=== PATIENT | female | born 1960 | race American Indian/Alaskan Native ===

== ENCOUNTER 2021-07-20 13:50 | Outpatient (CLI) | payer OTHER ==
--- NOTE | 2021-07-22 16:52 | Mammography Report ---
BILATERAL DIGITAL DIAGNOSTIC MAMMOGRAM WITH CAD CONVENTIONAL, 07/20/2021 BILATERAL LIMITED BREAST ULTRASOUND CLINICAL INFORMATION / INDICATION: Breast pain TECHNIQUE: Digital bilateral mammographic imaging was performed. Limited ultrasound was performed. Th is examination was interpreted with the benefit of Computer-Aided Detection (CAD) analysis. COMPARISON: Mammography 02/18/2020 FINDINGS: Breast Density: There are scattered areas of fibroglandular density. MAMMOGRAPHIC FINDINGS: No change is seen in either breast from prior study. No significant lesions ar e noted. ULTRASOUND FINDINGS: Targeted ultrasound evaluation was performed of the area of interest. In the rig ht breast in the area of pain only a 5 mm benign simple cyst is seen. No significant lesions are note d. Examination of the left breast shows at the 2:00 position, 2 cm from the nipple, a small wider than t all thin apparent solid nodule measuring 8 mm in length but only 2 mm in thickness. No shadowing or v ascularity are seen and borders are reasonably well-defined. This could represent 2 tiny adjacent nod ules and is somewhat bilobed in appearance. In the 4:00 retroareolar area a tiny hypoechoic focus is seen measuring only 4 mm which has some internal hyperechogenicity and could be a tiny lymph node. In the 12:00 position, 1 cm from the nipple, a 5 mm simple cyst is seen. Small benign-appearing lymph n odes are noted in the axilla. IMPRESSION: Small benign or probably benign abnormalities are seen bilaterally. No abnormalities seen thought likely to account for patient's complaint of pain. Follow up recommendation: Clinical correlation to patient's complaint of pain. Recommend follow-up [facility] breast ultrasound in 6 months for the nodule at 2:00 and the tiny focus at 4:00. BI-RADS Category 3: PROBABLY BENIGN. Followup in 6 months. A "normal" or negative report should not discourage follow up or biopsy of a clinically significant f inding. A written summary of these findings will be mailed to the patient. The patient will be entered into a mammography reporting system which will generate a reminder letter for the patient's next appointmen t at the appropriate interval. According to the [employer], yearly mammograms are recommended starting at age 40 and continuing as long as a woman is in good health. Breast MRI is recommended for women with an jesika roximately 20-25% or greater lifetime risk of breast cancer, including women with a strong family his tory of breast or ovarian cancer and women who have been treated for Hodgkin's disease. Signer Name: Patrick Laureano MD Signed: 07/22/2021 4:48 PM Workstation Name: [id number]
== END 2021-07-20 13:51 | disposition home or self-care (01) ==
LOC: MAMMO 13:50
DX: N60.01 Solitary cyst of right breast (principal); N60.02 Solitary cyst of left breast; N63.20 Unspecified lump in the left breast, unspecified quadrant; N64.9 Disorder of breast, unspecified
CPT/HCPCS: 77066